=== PATIENT | female | born 1955 | race Caucasian/White ===

== ENCOUNTER 2018-06-01 11:40 | Emergency (ER) | payer BC ==
--- OUTSIDE RECORDS SUMMARY | 2018-06-01 12:08 | XMS REPORT ---
:1955 External Reference #:[id number] Author Organization [facility] 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 Kimber Payan MD Primary Care Physician Unavailable Payers Type Date Identification Numbers Payment Provider Subscriber Commercial Policy Number: [id number] [facility] Tanika Rosales PayID: [id number] [address] [place] [address] Problems Date Description Provider Status Onset: 09/18/2013 Electrocardiogram abnormal Ela Norman, Active MSN, [employer]VIS[employer] Onset: 09/18/2013 Benign essential hypertension Ela Norman, Active MSN, [employer]VIS[employer] Onset: 09/18/2013 Morbid obesity Ela Norman, Active MSN, [employer]PERVIS[employer] Onset: 10/21/2014 Precordial pain Elvin Hudson Active M.D., FAC Onset: 07/07/2015 Hyperlipidemia Elvin Hudson Active M.D., FACC Onset: 07/07/2015 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 Active Klebsiella pneumoniae Onset: 12/24/2015 Calculus of bile duct w acute Nelly Jeter M.D. Active cholangitis with obstruction Onset: 12/24/2015 Sepsis, unspecified organism Nelly Jeter M.D. Active Onset: 07/16/2016 Essential hypertension Elvin Hudson Active Nicky, [facility] Family History Date Family Member(s) Problem(s) Comments Father Alive Father 81 Father Mini Strokes Father Knee Surgeries almost due to complications from surgery Onset: (age 80 Mother Myocardial Infarction [place] in her late 60s Years) : (age 73 Mother due to COPD Years) Mother Cataracts Mother due to Heart () Disease First Son Alive First Son 41 Second Son Alive Second Son 38 First Brother Alive First Brother 53 First Sister Alive First Sister 59 First Sister Gallbladder Issues Social History Type Date Description Comments Marital Status Lives With Diet Patient follows no dietary restrictions Occupation Currently Working [employer] ADL's/IADL's Independent with all ADL's Cigarette Use Never Smoked Cigarettes ETOH Use Denies alcohol use Smoking Patient has never smoked Recreational Drug Use Never Used Drugs Daily Caffeine Consumes on average 1 cup of regular coffee per day Allergies, Adverse Reactions, Alerts Date Description Reaction Status Severity Comments Penicillins active 05/14/2014 Amoxicillin Trihydrate active Cipro active 05/14/2014 Potassium Clavulanate active 09/18/2013 Augmentin active 05/14/2014 Ciprofloxacin active 02/08/2018 Levofloxacin active Medications Medication Date Status Form Strength Qnty SIG Indications Ordering Provider Prednisolone 10/15 Active Suspension 1% 5ml 1 drop H25.812 Erlin Acetate /2017 left eye MD Pan four times daily for four weeks; please begin after surgery Ketorolac 10/15 Active Solution 0.5% 5unit 1 drop H25.812 Erlin Tromethamine /2017 s operative MD Pan eye 4 times daily for 2 weeks; please begin 3 days prior to operation Tobramycin 10/15 Active Solution 0.3% 1unit 1 drop H25.812 Kern, s left eye 4 MD Pan times daily for 10 days; please start 3 days before operation Oxygen 02/08 Active 2 liters @ [facility], night (8 MD Pan hours) Omeprazole 00/[address] 40mg 30cap 1 po qd s Ursodiol Active Capsules 500mg 60cap by mouth s 1-3 times a day Amlodipine Active Tablets 5mg 1 by mouth Unknown Besylate every day Metoprolol Active Tablets 50mg 1 by mouth Unknown Tartrate twice a day Centrum Silver Active Tablets 1 by mouth Unknown every day Prednisolone 02/15 Hx Suspension 1% 5ml 1 drop H25.813 Erlin Acetate /2017 right eye MD Pan - four times 03/29 daily for four weeks; please begin after surgery Ketorolac 02/15 Hx Solution 0.5% 5ml 1 drop H25.813 Erlin Tromethamine /2017 operative MD Pan - eye 4 03/29 times daily for 2 weeks; please begin 3 days prior to operation Tobramycin 02/15 Hx Solution 0.3% 1unit 1 drop H25.813 Erlin, /2017 s right eye MD Pan - 4 times 03/29 daily for 10 days; please begin 3 days before operation Clopidogrel 11/06 Hx Tablets 75mg 30tab 1 by mouth 786.51 Norman, Bisulfate /2014 s every day Ela Hanley , MSN, SUPERVIS[employer] Isosorbide 10/21 Hx Tablets ER 30mg 30tab /2 by 786.51 Tristan Mononitrate ER /2014 24HR s mouth , Elvin every day Nicky Sebastian, [facility] Aspirin Ec 10/[address] 81mg 120ta 1 by mouth R07.2 Tristan /2014 bs every day Elvin M.D., 12/22 [facility] /2015 Atorvastatin 10/21 Hx Tablets 10mg 30tab 1 by mouth 786.51 Tristan Calcium /2014 s every day , Elvin Sebastian M.D., [facility] Metformin HCL Hx Tablets 500mg 60tab 1 po bid s Bontril PDM Hx Tablets 35mg po qd Lopressor Hx Tablets 50mg 30tab po qd s - 12/22 Lisinopril Hx Tablets 20mg 30tab 1 po qd Unknown /0000 s Actigall Hx Capsules 300mg 100ca 2 po bid Unknown /0000 ps Tramadol HCL Hx Tablets 50mg 20tab 1 po as Unknown /0000 s needed for - pain 12/22 Ondansetron HCL Hx Tablets 4mg 10tab q.6 hrs Unknown /0000 s prn for - nausea 02/08 Calcium 600 + D Hx Tablets 600-400mg po bid Unknown /0000 -Unit - 12/22 Phendimetrazine Hx Tablets 35mg 1 tab by Unknown Tartrate /0000 mouth every day Acidophilus Hx Capsules 1 by mouth Unknown /0000 every day - 02/08 Hydrocodone Hx Tablets 5-325mg take 1 Unknown Bitartrate/Acetam /0000 tablet inophen - every 6 /08 hours needed for pain Vital Signs Date Vital Result Comment 07/16/2016 BP Systolic Sitting Left Arm 130 mmHg BP Diastolic Sitting Left Arm 86 mmHg Heart Rate 70 /min Height 65 inches 5'5" Weight 279.00 lb BMI (Body Mass Index) 46.4 kg/m2 BSA (Body Surface Area) 2.28 m2 12/24/2015 BP Systolic 102 mmHg BP Diastolic 68 mmHg Heart Rate 74 /min Respiratory Rate 18 /min Height 65 inches 5'5" Weight 280.00 lb BMI (Body Mass Index) 46.6 kg/m2 BSA (Body Surface Area) 2.28 m2 [place] body weight in kilograms 57 O2 % BldC Oximetry 98 % Ra 07/07/2015 BP Systolic Sitting Left Arm 130 mmHg BP Diastolic Sitting Left Arm 82 mmHg Heart Rate 64 /min Respiratory Rate 16 /min Height 65 inches 5'5" Weight 273.00 lb BMI (Body Mass Index) 45.4 kg/m2 BSA (Body Surface Area) 2.26 m2 01/02/2015 BP Systolic Sitting Right Arm 126 mmHg BP Diastolic Sitting Right Arm 78 mmHg Heart Rate 72 /min Respiratory Rate 16 /min Height 65 inches 5'5" Weight 271.00 lb BMI (Body Mass Index) 45.1 kg/m2 BSA (Body Surface Area) 2.25 m2 12/03/2014 BP Systolic Sitting Right Arm 122 mmHg BP Diastolic Sitting Right Arm 68 mmHg Heart Rate 70 /min Respiratory Rate 16 /min Height 65 inches 5'5" Weight 268.00 lb BMI (Body Mass Index) 44.6 kg/m2 BSA (Body Surface Area) 2.24 m2 11/06/2014 Heart Rate 64 /min Respiratory Rate 16 /min Height 65 inches 5'5" Weight 268.00 lb BMI (Body Mass Index) 44.6 kg/m2 BSA (Body Surface Area) 2.24 m2 10/21/2014 BP Systolic Sitting Right Arm 124 mmHg BP Diastolic Sitting Right Arm 78 mmHg Heart Rate 74 /min Respiratory Rate 16 /min Height 65 inches 5'5" Weight 269.00 lb BMI (Body Mass Index) 44.8 kg/m2 BSA (Body Surface Area) 2.24 m2 09/18/2013 BP Systolic Sitting Right Arm 120 mmHg BP Diastolic Sitting Right Arm 84 mmHg Heart Rate 66 /min Respiratory Rate 16 /min Height 65 inches 5'5" Weight 250.00 lb BMI (Body Mass Index) 41.6 kg/m2 BSA (Body Surface Area) 2.17 m2 04/26/2011 Height 65 inches 5'5" Weight 250.00 lb Results Test Date Test Result H/L Range Note CBS W/Automated Diff 09/13/2016 White Blood Count 8.1 K/uL 3.1-10.7 1 Red Blood Count 4.79 M/uL 3.90-5.40 1 Hemoglobin 14.1 gm/dL 11.6-15.8 1 Hematocrit 42.3 % 36.0-46.1 1 Mean Cell Volume 88.3 fl 80.9-99.0 1 Mean Corpuscular HGB 29.4 pg 25.9-32.7 1 Mean Corpuscular HGB Conc 33.3 g/dL 30.8-34.3 1 Platelet Count 231 K/uL 150-400 1 Red Cell Distri Width SD 41.1 fl 3-47 1 Red Cell Distri Width %CV 13.0 % 11.7-14.4 1 Mean Platelet Volume 9.8 fL 8.9-12.4 1 Neut% 71.3 % 40.4-72.8 1 Lymph % 19.5 % Low 20.0-42.0 1 Cottle % 6.9 % 4.3-13.2 1 Eo% 1.2 % 0.0-6.6 1 Bas% 1.1 % 0.0-1.1 1 Neut# 5.80 K/uL 1.8-7.0 1 Lymph # 1.59 K/uL 1.0-4.0 1 Cottle # 0.56 K/uL 0.3-0.9 1 Eos # 0.10 K/uL 0.0-0.5 1 Baso # 0.09 K/uL 0.0-0.1 1 Glycohemoglobin A1c 09/13/2016 Glycohemoglobin (A1c) 5.6 % 4.2-6.3 1, 2 eAG 114 mg/dL 1 Ua Routine 09/13/2016 Urine Color YELLOW Yellow 1 Urine Clarity CLEAR Clear 1 Urine Glucose - Dipstick NEGATIVE mg/dL Negative 1 Urine Bilirubin - Dipstick NEGATIVE Negative 1 Urine Ketone NEGATIVE mg/dL Negative 1 Urine Specific [place] 1.015 1.010-1.030 1 Urine Blood NEGATIVE Negative 1 Urine PH 6.0 Low 6.5-7.5 1 Urine Protein - Dipstick NEGATIVE mg/dL Negative 1 Urine Urobilinogen - Dipstick 0.2 E.U./dL 0.2-1.0 1 Urine Nitrite - Dipstick NEGATIVE Negative 1 Urine Leuk Esterase TRACE Negative 1 Urine RBC 0-2 rbc/hpf 0-2 1 Urine WBC 2-5 wbc/hpf 0-7 1 Urine Epithelial Cells FEW /lpf None Seen 1 Urine Bacteria FEW None Seen 1 Urine Mucus SMALL None Seen 1 Source: URINE, CLEAN CAT <SEE NOTE> 1, 3 Laboratory test finding 09/13/2016 Vitamin B12 319 pg/mL 193-986 1, 4 Comprehensive Metabolic Panel 09/13/2016 Glucose 94 mg/dL 74-106 1 BUN 11 mg/dL 7-18 1 Creatinine 0.8 mg/dL 0.6-1.3 1 Glom Filtration Rate, Estimate >60 mL/min >60 1 If >60 mL/min >60 1, 5 BUN/Creat 13.7 ratio 1 Sodium 141 mmol/L 136-145 1 Potassium 4.0 mmol/L 3.5-5.1 1 Chloride 106 mmol/L 98-107 1 Carbon Dioxide 27 mmol/L 21-32 1 Anion Gap 8 mEq/L 8-16 1 Calcium 9.0 mg/dL 8.5-10.1 1 Total Protein 7.8 g/dL 6.4-8.2 1 Albumin 3.7 g/dL 3.4-5.0 1 Globulin 4.1 g/dL 1.9-4.3 1 Alb/Glob 0.9 ratio 1 Bilirubin,Total 0.6 mg/dL 0.2-1.0 1 Sgot/Ast 15 U/L 15-37 1 SGPT/Alt 13 U/L 12-78 1 Alkaline Phosphatase 196 U/L High 45-117 1 Laboratory test finding 09/13/2016 Uric Acid 4.9 mg/dL 2.6-6.0 1, 6 Phosphorous 3.2 mg/dL 2.5-4.0 1, 7 Magnesium 2.1 mg/dL 1.8-2.4 1, 8 LDL Cholesterol Profile 09/13/2016 Cholesterol 206 mg/dL High <200 1, 9 Triglycerides 100 mg/dL <150 1, 10 HDL Cholesterol 60 mg/dL >40 1, 11 LDL-Cholesterol 126 mg/dL < 100 1, 12 Laboratory test finding 09/13/2016 Thyroxine (T4) 12.4 g/dL 4.7-13.3 1 , 13 Thyroid Stim Hormone 3.13 uIU/mL 0.30-4.20 1, 14 Free T3 2.51 pg/mL 2.18-3.98 1, 15 Free T4 1.13 ng/dL 0.76-1.46 1, 16 C-Reactive Protein,Quant 16.0 mg/L High <3.0 1, 17 Triiodothyronine,Total 139 ng/dL 71-180 1, 18 Vitamin D,25-Hydroxy 19.8 ng/mL Low 30.0-100.0 1, 19 Homocyst(E)Ine, P/S 09/13/2016 Homocyst(e)ine, P/S 10.0 umol/L 0.0-15.0 1, 20 Thyroglobulin QT And 09/13/2016 Thyroglobulin Antibody < 1.0 IU/mL 0.0- 0.9 1, 21 Thyro AB Thyroglobulin By Shana 10.7 ng/mL 1.5-38.5 1, 22 Laboratory test finding 09/13/2016 Thyroid Peroxidase 14 IU/mL 0-34 1, 23 Antibodies CBC 12/23/2015 White Blood Count 7.5 K/uL 3.1-10.7 Red Blood Count 4.43 M/uL 3.90-5.40 Hemoglobin 13.2 gm/dL 11.6-15.8 Hematocrit 39.3 % 36.0-46.1 Mean Cell Volume 88.7 fl 80.9-99.0 Mean Corpuscular HGB 29.8 pg 25.9-32.7 Mean Corpuscular HGB Conc 33.6 g/dL 30.8-34.3 Platelet Count 255 K/uL 155-360 Red Cell Distri Width %CV 13.3 % 11.7-14.4 Mean Platelet Volume 10.2 fL 8.9-12.4 Laboratory test finding 12/23/2015 C-Reactive Protein,Quant 5.8 mg/L High <3.0 Comprehensive Metabolic 12/23/2015 Glucose 96 mg/dL 74-106 Panel BUN 11 mg/dL 7-18 Creatinine 0.7 mg/dL 0.6-1.3 Glom Filtration Rate, Estimate >60 mL/min >60 If >60 mL/min >60 24 BUN/Creat 15.7 ratio Sodium 139 mmol/L 136-145 Potassium 4.0 mmol/L 3.5-5.1 Chloride 106 mmol/L 98-107 Carbon Dioxide 27 mmol/L 21-32 Anion Gap 6 mEq/L Low 8-16 Calcium 8.9 mg/dL 8.5-10.1 Total Protein 7.2 g/dL 6.4-8.2 Albumin 3.2 g/dL Low 3.4-5.0 Globulin 4.0 g/dL 1.9-4.3 Alb/Glob 0.8 ratio Bilirubin,Total 0.8 mg/dL 0.2-1.0 Sgot/Ast 27 U/L 15-37 SGPT/Alt 22 U/L 12-78 Alkaline Phosphatase 200 U/L High 45-117 Comprehensive Metabolic Panel 12/12/2015 Glucose 81 mg/dL 74-106 BUN 15 mg/dL 7-18 Creatinine 0.6 mg/dL 0.6-1.3 Glom Filtration Rate, Estimate >60 mL/min >60 If >60 mL/min >60 25 BUN/Creat 25.0 ratio Sodium 141 mmol/L 136-145 Potassium 3.6 mmol/L 3.5-5.1 Chloride 108 mmol/L High 98-107 Carbon Dioxide 27 mmol/L 21-32 Anion Gap 6 mEq/L Low 8-16 Calcium 8.9 mg/dL 8.5-10.1 Total Protein 6.5 g/dL 6.4-8.2 Albumin 2.7 g/dL Low 3.4-5.0 Globulin 3.8 g/dL 1.9-4.3 Alb/Glob 0.7 ratio Bilirubin,Total 1.1 mg/dL High 0.2-1.0 Sgot/Ast 19 U/L 15-37 SGPT/Alt 28 U/L 12-78 Alkaline Phosphatase 192 U/L High 45-117 Laboratory test finding 12/12/2015 C-Reactive Protein,Quant 84.6 mg/L High <3.0 CBC 12/12/2015 White Blood Count 11.3 K/uL High 3.1-10.7 Red Blood Count 3.78 M/uL Low 3.90-5.40 Hemoglobin 11.4 gm/dL Low 11.6-15.8 Hematocrit 34.3 % Low 36.0-46.1 Mean Cell Volume 90.7 fl 80.9-99.0 Mean Corpuscular HGB 30.2 pg 25.9-32.7 Mean Corpuscular HGB Conc 33.2 g/dL 30.8-34.3 Platelet Count 147 K/uL Low 155-360 Red Cell Distri Width %CV 13.8 % 11.7-14.4 Mean Platelet Volume 11.1 fL 8.9-12.4 CBC W/Automated Diff 12/12/2015 White Blood Count 11.3 K/uL High 3.1-10.7 Red Blood Count 3.78 M/uL Low 3.90-5.40 Hemoglobin 11.4 gm/dL Low 11.6-15.8 Hematocrit 34.3 % Low 36.0-46.1 Mean Cell Volume 90.7 fl 80.9-99.0 Mean Corpuscular HGB 30.2 pg 25.9-32.7 Mean Corpuscular HGB Conc 33.2 g/dL 30.8-34.3 Platelet Count 147 K/uL Low 155-360 Red Cell Distri Width SD 44.5 fl 3-47 Red Cell Distri Width %CV 13.8 % 11.7-14.4 Mean Platelet Volume 11.1 fL 8.9-12.4 Neut% 75.7 % High 40.4-72.8 Lymph % 18.4 % 17.0-46.1 Cottle % 5.3 % 4.3-13.2 Eo% 0.4 % 0.0-6.6 Bas% 0.2 % 0.0-1.1 Neut# 8.55 K/uL High 1.8-7.0 Lymph # 2.08 K/uL 1.8-7.0 Cottle # 0.60 K/uL 0.3-0.9 Eos # 0.05 K/uL 0.0-0.5 Baso # 0.02 K/uL 0.0-0.1 Laboratory test finding 12/12/2015 Basophils # (Auto) 0.02 0.0-0.1 Basophils (%) (Auto) 0.2 0.0-1.1 Carbon Dioxide Level 27 21-32 Eosinophils # (Auto) 0.05 0.0-0.5 Eosinophils (%) (Auto) 0.4 0.0-6.6 Lymphocytes # (Auto) 2.08 1.8-7.0 Lymphocytes (%) (Auto) 18.4 17.0-46.1 Monocytes # (Auto) 0.60 0.3-0.9 Monocytes (%) (Auto) 5.3 4.3-13.2 Neutrophils # (Auto) 8.55 High 1.8-7.0 Neutrophils (%) (Auto) 75.7 High 40.4-72.8 RDW Coefficient of Variation 13.8 11.7-14.4 Red Cell Distribution Width 44.5 3-47 Sodium Level 141 136-145 Protime 12/11/2015 Protime 14.2 seconds 12.1-14.9 Inr 1.1 0.9-1.1 26 Laboratory test finding 12/11/2015 Act Partial Thrombo 31.7 seconds 23.9- 34.3 27 Time Laboratory test finding 12/11/2015 Prothrombin Time 14.2 12.1-14.9 Laboratory test finding 12/11/2015 Lipase 78 73-393 Magnesium Level 1.8 1.8-2.4 Laboratory test finding 12/10/2015 Bedside Glucose 109 70-110 Laboratory test finding 12/10/2015 Aerobic Blood Culture No Growth Laboratory test finding 12/10/2015 Aerobic Blood Culture No Growth Anaerobic Blood Culture No Growth Laboratory test finding 12/10/2015 Band Neutrophils % 19 0-8 Differential Total Cells Counted 100 Lymphocytes % 3 Low 17-56 Manual Slide Review (Hematology) Diff Ordered Monocytes % 1 0-10 Neutrophils % 77 High 33-73 Platelet Estimate Slight Decrease Laboratory test finding 12/09/2015 Aerobic Blood Culture Organism: Klebsiella Pneumoniae Anaerobic Blood Culture Organism: Klebsiella Pneumoniae Basophils % 1 0-2 Direct Bilirubin 1.2 High 0.0-0.2 Total Creatine Kinase 30 26-192 Laboratory test finding 12/09/2015 Aerobic Blood Culture Organism: Klebsiella Pneumoniae Anaerobic Blood Culture Organism: Klebsiella Pneumoniae Laboratory test finding 12/09/2015 Urine Bilirubin Large High Negative Urine Blood Trace Negative Urine Clarity Clear Clear Urine Color Levering Yellow Urine Glucose (Ua) 100 High Negative Urine Ketones Trace High Negative Urine Leukocyte Esterase Negative Negative Urine Nitrite Negative Negative Urine Protein 30 High Negative Urine Specific [place] 1.015 1.010-1.030 Urine Urobilinogen 1.0 0.2-1.0 Urine pH 5.5 Low 6.5-7.5 Laboratory test finding 11/02/2015 Alanine Aminotransferase 88 High 12-78 (Alt/SGPT) Albumin 3.4 3.4-5.0 Albumin/Globulin Ratio 0.7 Alkaline Phosphatase 487 High 45-117 Anion Gap 11 8-16 Aspartate Amino Transf (Ast/Sgot) 144 High 15-37 BUN/Creatinine Ratio 11.2 Basophils # (Auto) 0.02 0.0-0.1 Basophils (%) (Auto) 0.1 0.0-1.1 Blood Urea Nitrogen 9 7-18 Calcium Level 9.8 8.5-10.1 Carbon Dioxide Level 23 21-32 Chloride Level 104 98-107 Creatinine 0.8 0.6-1.3 Eosinophils # (Auto) 0.02 0.0-0.5 Eosinophils (%) (Auto) 0.1 0.0-6.6 Globulin 4.8 High 1.9-4.3 Glucose Screen 118 High 74-106 Hematocrit 43.7 36.0-46.1 Hemoglobin 14.7 11.6-15.8 Lipase 151 73-393 Lymphocytes # (Auto) 0.63 Low 1.8-7.0 Lymphocytes (%) (Auto) 3.6 Low 17.0-46.1 Manual Slide Review (Hematology) See Note 28 Mean Corpuscular Hemoglobin 30.3 25.9-32.7 Mean Corpuscular Hemoglobin Concent 33.6 30.8-34.3 Mean Corpuscular Volume 90.1 80.9-99.0 Mean Platelet Volume 10.1 8.9-12.4 Monocytes # (Auto) 1.26 High 0.3-0.9 Monocytes (%) (Auto) 7.1 4.3-13.2 Neutrophils # (Auto) 15.72 High 1.8-7.0 Neutrophils (%) (Auto) 89.1 High 40.4-72.8 Platelet Count 205 155-360 Potassium Level 4.0 3.5-5.1 RDW Coefficient of Variation 13.7 11.7-14.4 Red Blood Count 4.85 3.90-5.40 Red Cell Distribution Width 44.0 3-47 Sodium Level 138 136-145 Total Bilirubin 4.7 High 0.2-1.0 Total Protein 8.2 6.4-8.2 White Blood Count 17.7 High 3.1-10.7 Laboratory test finding 11/02/2015 Urine Bilirubin Large High Negative Urine Blood Negative Negative Urine Clarity SL Cloudy Clear Urine Color DK Yellow Yellow Urine Glucose (Ua) 100 High Negative Urine Ketones 15 High Negative Urine Leukocyte Esterase Negative Negative Urine Nitrite Negative Negative Urine Protein Negative Negative Urine Specific [place] 1.010 1.010-1.030 Urine Urobilinogen 0.2 0.2-1.0 Urine pH 7.5 6.5-7.5 1 E66.9,R53.83,E78.5,Z88.7,E55.9,D51.0,R73.02 2 Elevated levels of HbA1c suggest the need for more aggressive treatment of glycemia. The [place] Diabetes Association recommends that a primary goal of therapy should be a HbA1c of <7% and that physicians should re-evaluate the treatment regimen in patients with HbA1c values consistently >8%. 3 URINE, CLEAN CATCH 4 PLEASE FAX TO [phone] 5 Note: Persistent reduction for 3 months or more in an eGFR <60 mL/min/1.73 m2 defines CKD. Patients with eGFR values >/=60 mL/min/1.73 m2 may also have CKD if evidence of persistent proteinuria is present. The original MDRD equation for estimated GFR is not valid for patients less than 18 years of age. Additional information may be found at www.kdoqi.org. 6 PLEASE FAX TO [phone] PLEASE FAX TO [phone] PLEASE FAX TO [phone] 9 Reference Guidelines*: Desirable: ........... < 200 mg/dL Borderline High: ..... 200-239 mg/dL High: ................ >=240 mg/dL * The National Cholesterol Education Program (NCEP) 10 Reference Guidelines*: Normal: ............. < 150 mg/dL Borderline High: .... 150-199 mg/dL High: ............... 200-499 mg/dL Very High: .......... > 500 mg/dL * Source: National Cholesterol Education Program (NCEP) 11 Reference Guidelines*: Low HDL: ..... < 40 mg/dL Normal: ..... 40-60 mg/dL Desirable: ... > 60 mg/dL *The National Cholesterol Education Program(NCEP) 12 Reference Guidelines*: Optimal:........... <100 mg/dL Near Optimal....... 100-129 mg/dL Borderline High.... 130-159 mg/dL High............... 160-189 mg/dL Very High.......... >=190 mg/dL * Source: National Cholesterol Education Program (NCEP) 13 PLEASE FAX TO [phone] 14 PLEASE FAX TO [phone] 15 PLEASE FAX TO [phone] 16 PLEASE FAX TO [phone] 17 PLEASE FAX TO [phone] 18 Performed at: RN - [facility] [address] [id number] Residential Real [employer] Assistant: Carli Dumont MD, Phone: [phone] 19 Vitamin D deficiency has been defined by the [place] [employer] and an Endocrine Society practice guideline as a level of serum 25-OH vitamin D less than 20 ng/mL (1,2). The Endocrine Society went on to further define vitamin D insufficiency as a level between 21 and 29 ng/mL (2). 1. IOM ([place] [employer]). 2010. Dietary reference intakes for calcium and D. [place]: The National Academies Press. 2. Ananth HOOKS, Cinthya FLORES, Alfredo WAY, et al. Evaluation, treatment, and prevention of vitamin D deficiency: an Endocrine Society clinical practice guideline. JCEM. 2010; 96(7):1911-30. Performed at: [address] [id number] [employer]idential [employer] Assistant: Carli Dumont MD, Phone: [phone] 20 Performed at: [address] [id number] Residential [employer] Assistant: Carli Dumont MD, Phone: [phone] Thyroglobulin Antibody measured by [facility] 22 According to the National Academy of Clinical Biochemistry, the reference interval for Thyroglobulin (TG) should be related to euthyroid patients and not for patients who underwent thyroidectomy. TG reference intervals for these patients depend on the residual mass of the thyroid tissue left after surgery. Establishing a post-operative baseline is recommended. The assay limit of quantitation is 0.1 ng/mL Thyroglobulin measured by [facility] 23 Performed at: [address] [id number] Residential [employer] Estate Assistant: Carli Dumont MD, Phone: [phone] 24 Note: Persistent reduction for 3 months or more in an eGFR <60 mL/min/1.73 m2 defines CKD. Patients with eGFR values >/=60 mL/min/1.73 m2 may also have CKD if evidence of persistent proteinuria is present. The original MDRD equation for estimated GFR is not valid for patients less than 18 years of age. Additional information may be found at www.kdoqi.org. 25 Note: Persistent reduction for 3 months or more in an eGFR <60 mL/min/1.73 m2 defines CKD. Patients with eGFR values >/=60 mL/min/1.73 m2 may also have CKD if evidence of persistent proteinuria is present. The original MDRD equation for estimated GFR is not valid for patients less than 18 years of age. Additional information may be found at www.kdoqi.org. 26 THERAPEUTIC INR RANGE: 2.0 - 3.0 DVT, Pulmonary embolus, prophylaxis against venous thrombosis or systemic embolization in high risk patients. 2.5 - 3.5 Mechanical heart valves 27 Is patient on heparin protocol? N QUERY: Anticoagulant Therapy? QUERY: Date of Last Dose: QUERY: Time of Last Dose: 28 Instrument flagged sample for slide review. Less than 10% Bands seen, no other immature WBC's seen. RBC morphology essentially normal. Platelet estimate= Normal Procedures Date CPT Code Description Status 04/26/2018 91583 Extracapsular Cataract Removal W/Insertion Of Completed Intraocular Lens pr 03/01/2018 33648 Extracapsular Cataract Removal W/Insertion Of Completed Intraocular Lens pr 02/15/2018 63522 Ophthalmic Biometry By Partial Coherence Interferometry Completed W/Intra 02/06/2018 32976 Eye Exam New Patient Comprehensive Completed 07/16/2016 52981 EKG-Tracing And Report Completed 10/28/2014 23539 Stress Test Interpre And Report Only Completed 10/28/2014 78434 Stress Test Physician Super Only Completed 10/28/2014 88670 Stress Test Physician Super Only Completed 10/28/2014 09706 Myocardial Imaging Tomographic Multiple Study AT Rest Completed Or Stress 10/21/2014 33216 EKG-Tracing And Report Completed 05/15/2014 54094 Anesthesia, Upper GI Endoscopic Surgery Completed 09/27/2013 74689 Echocardiogram Complete Completed 09/18/2013 35395 EKG-Tracing And Report Completed 09/18/2013 95700 EKG-Tracing And Report Completed 06/01/2011 20293 Asp./Injection major joint Completed 12/24/2010 35499 EKG Interpretation And Report Only Completed 12/24/2010 59884 Anesthesia, Upper GI Endoscopic Surgery Completed 10/10/2010 51569 EKG Interpretation And Report Only Completed 04/18/2008 03788 Doppler ECHO Color Flow Mapping Completed 04/18/2008 47009 Doppler Echocardiogram Complete Completed 04/18/2008 49049 Echocariogram 2D Complete Completed 04/18/2008 92511 Stress Test Interpre And Report Only Completed 04/18/2008 78433 Ejection Fraction Completed 04/18/2008 02254 Myocardial Wall Motion Completed 04/18/2008 82512 Cardiolite Stress/Rest Spect Completed 04/15/2008 39874 EKG Interpretation And Report Only Completed 10/25/2007 Mammogram Completed 08/24/2007 39076 Stress Test Interpre And Report Only Completed 08/24/2007 53656 Stress Test Physician Super Only Completed Encounters Type Date Location Provider CPT E/M Dx Office Visit 07/16/2016 8:00a Cardiology Office Elvin [place], [address] I25.10 Nicky, [facility] R07.2 I10 Office Visit 12/24/2015 3:30p Physical Medicine & MeNelly self M.D. 77169 B96.1 Infectious Disease K80.33 A41.9 Office Visit 07/07/2015 9:10a Cardiology Office Elvin Hudson, 87036 I25.10 M.Alexandre, FACC R07.2 Office Visit 01/02/2015 9:00a Cardiology Office Ela Norman, 21768 786.51 MSN, [employer] 414.01 401.1 272.4 Office Visit 12/03/2014 3:00p Cardiology Office Elvin Hudson, 48116 786.51 M.DKrysta, [facility] 401.1 Office Visit 11/06/2014 2:40p Cardiology Office Ela Norman, 71795 786.51 MSN, [employer] 401.1 272.4 Office Visit 10/21/2014 2:40p Cardiology Office Elvin Hudson, 42006 786.51 M.DKrysta, [facility] 401.1 Office Visit 05/14/2014 2:09p [facility] [place], 99227 [phone] [facility] M.D. Office Visit 03/20/2014 10:45a [facility] Raymond Gordon, 54697 [phone] [facility] M.D. Office Visit 09/18/2013 1:00p Cardiology Office Ela Norman 75999 794.31 Talon, MSN, [employer] 401.1 278.01 Office Visit 11/28/2008 3:00p Surgical Office Juan Renteria, [address] 217 MConnor Plan of Care Future Appointment(s):05/16/2018 3:45 pm - Pan Kern MD at Ophthalmology
[2018-06-01 12:27] VITALS: BP 149/78
--- NOTE | 2018-06-01 12:35 | UC ---
Throat Pain/Nasal Héctor HPI - HPI Summary HPI Summary: Pt presents with c/o ST, cough, nasal congestion, sinus pressure, cough, malaise X 7 days. - History of Current Complaint Chief Complaint: UCGeneralIllness Stated Complaint: ST/SINUS/BI LAT EARS COMPLAINT Time Seen by Provider: 06/01/18 12:26 Hx Obtained From: Patient ?: No Onset/Duration: Sudden Onset, Lasting Days, Still Present, Worse Since - onset Severity: Mild Pain Intensity: 2 Cough: Nonproductive Associated Signs & Symptoms: Positive: Dysphagia, Sinus Discomfort, Fever - Epiglottits Risk Factors Epiglottis Risk Factors: Negative - Allergies/Home Medications Allergies/Adverse Reactions: Allergies Allergy/AdvReac Type Severity Reaction Status Date / Time amoxicillin [From Augmentin] Allergy Hives Verified 06/01/18 12:09 ciprofloxacin Allergy Rash Verified 06/01/18 12:09 clavulanic acid Allergy Hives Verified 06/01/18 12:09 [From Augmentin] Penicillins Allergy Unknown Verified 06/01/18 12:09 Reaction Details Home Medications: Home Medications Acetaminophen TAB* [Tylenol TAB*] 650 mg PO Q4H PRN 06/01/18 [History Confirmed 06/01/18] Multivit-Min/Iron/Folic/Lutein [Centrum Silver Women Tablet] 1 each PO DAILY [History Confirmed 06/01/18] Omeprazole 40 mg PO DAILY 06/01/18 [History Confirmed 06/01/18] Ondansetron TAB* [Zofran 4 MG Tab*] 4 mg PO Q6H PRN 06/01/18 [History Confirmed 06/01/18] Ursodiol 500 mg PO BID 06/01/18 [History Confirmed 06/01/18] amLODIPine TAB* [Norvasc 5 mg TAB*] 5 mg PO DAILY 06/01/18 [History Confirmed ] PMH/Surg Hx/FS Hx/Imm Hx Previously Healthy: Yes - hearing impaired Endocrine History: Dyslipidemia Cardiovascular History: Hypertension - Surgical History Surgical History: Yes Surgery Procedure, Year, and Place: GALL BLADDER REMOVAL, BILE DUCT STENTS, HYSTERECTOMY, C SECTION, PILONIDAL CYSTECTOMY, KIDNEY STONE REMOVAL, TONSILLECTOMY. Left eye cataract sx-04/2018. Right eye cataract sx--02/2018 - Family History Known Family History: Positive: Cardiac Disease - Social History Occupation: Employed Full-time Lives: With Family Alcohol Use: None Substance Use Type: None Smoking Status (MU): Never Smoked Tobacco Have You Smoked in the Last Year: No Review of Systems All Other Systems Reviewed And Are Negative: Yes Constitutional: Positive: Fever, Fatigue Skin: Positive: Negative Eyes: Positive: Negative ENT: Positive: Sinus Congestion Respiratory: Positive: Cough Cardiovascular: Positive: Negative Gastrointestinal: Positive: Negative Genitourinary: Positive: Negative Motor: Positive: Negative Neurovascular: Positive: Negative Musculoskeletal: Positive: Myalgia Neurological: Positive: Headache Psychological: Positive: Negative Is Patient Immunocompromised?: No Physical Exam Triage Information Reviewed: Yes Appearance: Ill-Appearing Vital Signs: Initial Vital Signs Temp 99.2 F 06/01/18 12:20 Pulse 60 06/01/18 12:20 Resp 16 06/01/18 12:20 BP 149/78 06/01/18 12:20 Pulse Ox 98 06/01/18 12:20 Vital Signs Reviewed: Yes Eye Exam: Normal ENT: Positive: Nasal congestion, TM bulging - bilateral, Sinus tenderness Dental Exam: Normal Neck exam: Normal Respiratory Exam: Normal Cardiovascular Exam: Normal Musculoskeletal Exam: Normal Neurological Exam: Normal Psychological Exam: Normal Skin Exam: Normal Throat Pain/Nasal Course/Dx - Differential Dx/Diagnosis Differential Diagnosis/HQI/PQRI: Influenza, Sinusitis, Tonsillitis, URI Provider Diagnosis: Sinusitis, acute Discharge - Sign-Out/Discharge Documenting (check all that apply): Patient Departure All imaging exams completed and their final reports reviewed: No Studies - Discharge Plan Condition: Stable Disposition: HOME Prescriptions: Azithromycin TAB* [Zithromax TAB (Z-OXANA) 250 mg #6 tabs] 2 tab PO .TODAY, THEN 1 DAILY #1 oxana Patient Education Materials: Sinusitis (ED) Forms: *Work Release Referrals: Kimber Payan MD [Primary Care Provider] - 2 Days - Billing Disposition and Condition Condition: STABLE Disposition: Home - Attestation Statements Provider Attestation: Per institutional requirements, I have reviewed the chart, however, I was not consulted specifically or made aware of this patient by the midlevel provider. I did not personally evaluate, interact with , or disposition this patient.
== END 2018-06-01 12:43 | disposition home or self-care (01) ==
LOC: UCCORT 11:40
DX: J01.90 Acute sinusitis, unspecified (principal); Z88.0 Allergy status to penicillin; Z88.1 Allergy status to other antibiotic agents; Z88.8 Allergy status to other drugs, medicaments and biological substances; I10 Essential (primary) hypertension
CPT/HCPCS: 99212; G0463